=== PATIENT | female | born 1995 | race Asian ===

== ENCOUNTER 2023-05-10 07:14 | Inpatient (IN) | payer OTHER ==
[2023-05-10] MEDS: ELECTROLYTE-148 SOLN 1,000 ML IV SCH (08:30)
[2023-05-10] MEDS: OXYTOCIN 30 UNITS in 0.9% NS 30 UNIT/500 ML INFUS.BAG IVPB SCH (08:40)
[2023-05-10 09:13] VITALS: BMI 44.2
[2023-05-10 09:48] LABS: BASO % 1.4 % (0-2.0); EOS % 1.5 % (0-4.5); HEMATOCRIT 32.8 % (32.4-45.2); HEMOGLOBIN 10.9 GM/dL (10.7-15.3); LYMPH % 18.9 % (8-40); MCH 27.3 pg (25.7-33.7); MCHC 33.2 g/dl (32.0-36.0); MEAN CELL VOLUME 82.3 fl (80-96); MONO % 3.8 % (3.8-10.2); NEUT % 74.4 % (42.8-82.8); PLATELET COUNT 272 10^3/uL (134-434); RBC 3.99 M/mm3 (3.60-5.2); RDW 16.2 % (11.6-15.6); WHITE BLOOD COUNT 9.1 K/mm3 (4.0-10.0)
[2023-05-10 10:17] LABS: POTASSIUM 4.2 mmol/L (3.5-5.1)
[2023-05-10 10:18] LABS: CALCIUM 8.9 mg/dL (8.5-10.1)
[2023-05-10 10:19] LABS: BLOOD UREA NITROGEN 12.4 mg/dL (7-18)
[2023-05-10 10:22] LABS: CREATININE 0.5 mg/dL (0.55-1.3)
[2023-05-10 10:39] LABS: INR 0.95 (0.83-1.09)
[2023-05-10 10:40] LABS: ACTIVATED PTT 31.2 SECONDS (25.2-36.5)
[2023-05-10 12:13] LABS: HIV INTERPRETATION NEGATIVE (NEGATIVE)
[2023-05-10] MEDS ORDERED: FENTANYL CITRATE/PF 50 MCG/ML VIAL ONE (15:22)
[2023-05-10] MEDS ORDERED: FENTANYL/BUPIVACAINE/NS/PF - PCEA - 50 ML DISP.SYRIN EP ONE ×2 (15:47→20:34)
[2023-05-10] MEDS: FENTANYL/BUPIVACAINE/NS/PF - PCEA - 50 ML DISP.SYRIN EP SCH (15:50)
[2023-05-10] MEDS ORDERED: NALOXONE HCL 0.4 MG/ML VIAL IVPUSH PRN (16:09)
[2023-05-11] MEDS ORDERED: FENTANYL/BUPIVACAINE/NS/PF - PCEA - 50 ML DISP.SYRIN EP ONE (00:38)
[2023-05-11] MEDS ORDERED: LIDOCAINE HCL 1% PRESERVATIVE FREE - 30ML VIAL ONE (02:46)
[2023-05-11] MEDS ORDERED: OXYTOCIN 20 UNITS in 0.9% NS 20 UNIT/1,000 ML INFUS.BAG IV ONE (02:46)
[2023-05-11] MEDS: OXYTOCIN 20 UNITS in 0.9% NS 20 UNIT/1,000 ML INFUS.BAG IV SCH (04:05)
[2023-05-11] MEDS ORDERED: BISACODYL 10 MG SUPP.RECT RC PRN (04:20)
[2023-05-11] MEDS ORDERED: ACETAMINOPHEN 325 MG TABLET (FP) PO PRN (04:20)
[2023-05-11] MEDS ORDERED: IBUPROFEN 600 MG TABLET (FP) PO PRN (04:20)
[2023-05-11] MEDS ORDERED: WITCH HAZEL 50% (TUCKS) 40 PAD/JAR PAD TP PRN (04:20)
[2023-05-11] MEDS ORDERED: BENZOCAINE 28 GM HEMORRHOIDAL OINTMENT TP PRN (04:20)
[2023-05-11] MEDS ORDERED: METHYLERGONOVINE MALEATE 0.2 MG/1 ML AMP IM PRN (04:20)
[2023-05-11] MEDS ORDERED: oxyCODONE HCL 5 MG TABLET PO PRN (04:20)
[2023-05-11] MEDS ORDERED: BENZOCAINE 20% 57 GM BOTTLE TP PRN (04:20)
[2023-05-11] MEDS: PRENATAL VITAMINS W/ FOLIC ACID TABLET (FP) PO SCH (09:56)
[2023-05-11] MEDS: FERROUS SO4 325 MG TABLET (FP) PO SCH (09:57)
[2023-05-11] MEDS: diphenhydrAMINE HCL 25 MG CAPSULE (FP) PO PRN (23:11)
[2023-05-12 08:31] VITALS: RESP 16
[2023-05-12 08:34] VITALS: BP 128/83; PULSE 90; TEMP 98.2
[2023-05-12 09:31] LABS: BASO % 0.5 % (0-2.0); EOS % 1.9 % (0-4.5); HEMATOCRIT 35.3 % (32.4-45.2); HEMOGLOBIN 11.7 GM/dL (10.7-15.3); MCH 27.4 pg (25.7-33.7); MCHC 33.1 g/dl (32.0-36.0); MEAN CELL VOLUME 82.8 fl (80-96); MEAN PLT VOLUME 7.7 fl (7.5-11.1); MONO % 3.2 % (3.8-10.2); NEUT % 83.4 % (42.8-82.8); PLATELET COUNT 311 10^3/uL (134-434); RBC 4.26 M/mm3 (3.60-5.2); WHITE BLOOD COUNT 12.6 K/mm3 (4.0-10.0)
[2023-05-12] MEDS: FERROUS SO4 325 MG TABLET (FP) PO SCH (10:08)
[2023-05-12] MEDS ORDERED: SENNOSIDES/DOCUSATE COMBO (SENNA PLUS) TABLET (UD) PO PRN (22:00)
== END 2023-05-12 13:58 | disposition home or self-care (01) | DRG 560 ==
LOC: JLDR 07:14 → J3W 05-11 06:03
PROVIDERS: ADMIT Obstetrics & Gynecology; ATTEND Obstetrics & Gynecology
PROC: 10907ZC Drainage of Amniotic Fluid, Therapeutic from Products of Conception, Via Natural or Artificial Opening (ICD-10-PCS; 2023-05-10)
PROC: 3E0P7VZ Introduction of Hormone into Female Reproductive, Via Natural or Artificial Opening (ICD-10-PCS; 2023-05-10)
PROC: 10E0XZZ Delivery of Products of Conception, External Approach (ICD-10-PCS; principal; 2023-05-11)
PROC: 0HQ9XZZ Repair Perineum Skin, External Approach (ICD-10-PCS; 2023-05-11)
DX: O48.0 Post-term pregnancy (principal); O70.0 First degree perineal laceration during delivery; Z3A.41 41 weeks gestation of pregnancy; Z37.0 Single live birth
CPT/HCPCS: 36415; 80048; 85025; 85610; 85730; 86780; 86850; 86900; 86901; 87389

== ENCOUNTER 2023-06-15 06:05 | Emergency (ER) | payer OTHER ==
[2023-06-15 06:13] VITALS: BMI 40.9
[2023-06-15] MEDS ORDERED: ACETAMINOPHEN INJECTION 100 ML IVPB ONE (07:30)
[2023-06-15] MEDS ORDERED: METOCLOPRAMIDE HCL INJECTION 10 MG/2 ML VIAL ONE (07:30)
[2023-06-15] MEDS: ACETAMINOPHEN 1000 MG/100 ML BAG IVPB ONE (08:07)
[2023-06-15] MEDS: METOCLOPRAMIDE HCL INJECTION 10 MG/2 ML VIAL IVPUSH ONE (08:07)
[2023-06-15] MEDS: METOCLOPRAMIDE HCL INJECTION 10 MG/2 ML VIAL IVPB ONE (08:08)
[2023-06-15 08:18] LABS: BASO % 0.3 % (0-2.0); EOS % 2.6 % (0-4.5); HEMATOCRIT 39.1 % (32.4-45.2); HEMOGLOBIN 12.6 GM/dL (10.7-15.3); LYMPH % 17.1 % (8-40); MCH 26.3 pg (25.7-33.7); MCHC 32.1 g/dl (32.0-36.0); MEAN CELL VOLUME 81.8 fl (80-96); MEAN PLT VOLUME 7.1 fl (7.5-11.1); MONO % 3.6 % (3.8-10.2); NEUT % 76.4 % (42.8-82.8); PLATELET COUNT 454 10^3/uL (134-434); RBC 4.78 M/mm3 (3.60-5.2); RDW 15.5 % (11.6-15.6); WHITE BLOOD COUNT 9.8 K/mm3 (4.0-10.0)
[2023-06-15 08:27] LABS: HCG,QUALITATIVE URINE Negative
[2023-06-15 08:42] LABS: CHLORIDE 105 mmol/L (98-107); POTASSIUM 4.3 mmol/L (3.5-5.1); SODIUM 138 mmol/L (136-145)
[2023-06-15 08:44] LABS: ANION GAP 5 mmol/L (4-13); CALCIUM 9.4 mg/dL (8.5-10.1); CO2 28 mmol/L (21-32); GLUCOSE,RANDOM 99 mg/dL (74-106)
[2023-06-15 08:45] LABS: ALBUMIN 3.9 g/dl (3.4-5.0); MAGNESIUM 2.1 mg/dL (1.8-2.4)
[2023-06-15 08:47] LABS: SGPT/ALT 41 U/L (13-61)
[2023-06-15 08:48] LABS: CREATININE 0.9 mg/dL (0.55-1.3); SGOT/AST 25 U/L (15-37)
[2023-06-15 08:49] LABS: BILIRUBIN,TOTAL 0.7 mg/dL (0.2-1); TOT PROT 7.8 g/dl (6.4-8.2)
[2023-06-15 08:50] LABS: ALK PHOS 165 U/L (45-117)
[2023-06-15 09:11] LABS: PH,URINE 5.5 (5.0-8.0); URINE APPEARANCE Clear; URINE BILIRUBIN Negative (NEGATIVE); URINE GLUCOSE (UA) Negative (NEGATIVE); URINE KETONE Negative (NEGATIVE); URINE LEUK ESTERASE Negative (NEGATIVE); URINE NITRITE Negative (NEGATIVE); URINE PROTEIN Negative (NEGATIVE); URINE UROBILINOGEN 0.2 mg/dL (0.2-1.0)
[2023-06-15 09:17] LABS: URINE COLOR COLORLESS
[2023-06-15 09:29] VITALS: BP 132/92; PULSE 78; RESP 18; TEMP 98.3
[2023-06-15] MEDS: LACTATED RINGERS SOLUTION 1000 ML INFUS.BAG IV ONE (09:42)
[2023-06-15 11:06] LABS: COCAINE, UR NEGATIVE (NEGATIVE); OPIATES, URI NEGATIVE (NEGATIVE)
[2023-06-15 11:07] LABS: PHENCYCLIDINE,URINE NEGATIVE (NEGATIVE); URINE BARBITURATES NEGATIVE (NEGATIVE); URINE BENZODIAZEPINES NEGATIVE (NEGATIVE)
[2023-06-15 11:08] LABS: METHADONE, UR NEGATIVE (NEGATIVE); URINE AMPHETAMINES NEGATIVE (NEGATIVE)
== END 2023-06-15 16:39 | disposition home or self-care (01) ==
LOC: JER 06:05
PROC: 3E033GC Introduction of Other Therapeutic Substance into Peripheral Vein, Percutaneous Approach (ICD-10-PCS; principal; 2023-06-15)
DX: R51.9 Headache, unspecified (principal); F53.0 Postpartum depression; R11.10 Vomiting, unspecified; F30.9 Manic episode, unspecified; H53.8 Other visual disturbances; R07.0 Pain in throat; R09.81 Nasal congestion; Z20.822 Contact with and (suspected) exposure to COVID-19
CPT/HCPCS: 0241U-QW; 36415; 80053; 80307; 81003; 82140; 83690; 83735; 84443; 84703; 85025; 87086; 99284-25

== ENCOUNTER 2024-06-01 07:20 | Inpatient (IN) | payer OTHER ==
[2024-06-01 08:50] VITALS: BMI 45.8
[2024-06-01] MEDS: ELECTROLYTE-148 SOLN 1,000 ML IV SCH (09:00)
[2024-06-01] MEDS ORDERED: OXYTOCIN 30 UNITS in 0.9% NS 30 UNIT/500 ML INFUS.BAG IVPB ONE (09:16)
[2024-06-01 09:27] LABS: BASO % 0.6 % (0-2.0); EOS % 1.6 % (0-4.5); HEMATOCRIT 32.6 % (32.4-45.2); HEMOGLOBIN 10.7 GM/dL (10.7-15.3); LYMPH % 19.8 % (8-40); MCH 25.7 pg (25.7-33.7); MCHC 32.7 g/dl (32.0-36.0); MEAN CELL VOLUME 78.6 fl (80-96); MEAN PLT VOLUME 7.8 fl (7.5-11.1); MONO % 3.4 % (3.8-10.2); NEUT % 74.6 % (42.8-82.8); PLATELET COUNT 291 10^3/uL (134-434); RBC 4.15 M/mm3 (3.60-5.2); RDW 17.6 % (11.6-15.6); WHITE BLOOD COUNT 7.6 K/mm3 (4.0-10.0)
[2024-06-01 09:33] LABS: INR 0.94 (0.83-1.09); PROTHROMBIN TIME (PATIENT) 10.3 SEC (9.7-13.0)
[2024-06-01 09:35] LABS: ACTIVATED PTT 32.1 SECONDS (25.2-36.5)
[2024-06-01] MEDS: OXYTOCIN 30 UNITS in 0.9% NS 30 UNIT/500 ML INFUS.BAG IVPB SCH (10:30)
[2024-06-01 10:36] LABS: ALBUMIN 2.2 g/dl (3.4-5.0); BLOOD UREA NITROGEN 10.1 mg/dL (7-18); CALCIUM 9.2 mg/dL (8.5-10.1); POTASSIUM 4.5 mmol/L (3.5-5.1)
[2024-06-01 10:45] LABS: BILIRUBIN,TOTAL 0.6 mg/dL (0.2-1); CREATININE 0.6 mg/dL (0.55-1.3); TOT PROT 6.6 g/dl (6.4-8.2)
[2024-06-01] MEDS ORDERED: FENTANYL/BUPIVACAINE/NS/PF - PCEA - 50 ML DISP.SYRIN EP ONE (13:42)
[2024-06-01] MEDS: FENTANYL/BUPIVACAINE/NS/PF - PCEA - 50 ML DISP.SYRIN EP SCH (14:15)
[2024-06-01] MEDS ORDERED: NALOXONE HCL 0.4 MG/ML VIAL IVPUSH PRN (15:12)
[2024-06-01] MEDS ORDERED: OXYTOCIN 20 UNITS in 0.9% NS 20 UNIT/1,000 ML INFUS.BAG IV ONE (17:32)
[2024-06-01] MEDS: OXYTOCIN 20 UNITS in 0.9% NS 20 UNIT/1,000 ML INFUS.BAG IV SCH (18:12)
[2024-06-01] MEDS ORDERED: WITCH HAZEL 50% (TUCKS) 40 PAD/JAR PAD TP PRN (18:26)
[2024-06-01] MEDS ORDERED: oxyCODONE HCL 5 MG TABLET PO PRN (18:26)
[2024-06-01] MEDS ORDERED: ACETAMINOPHEN 325 MG TABLET (FP) PO PRN (18:26)
[2024-06-01] MEDS ORDERED: BENZOCAINE 20% 57 GM BOTTLE TP PRN (18:26)
[2024-06-01] MEDS ORDERED: METHYLERGONOVINE MALEATE 0.2 MG/1 ML AMP IM PRN (18:26)
[2024-06-01] MEDS ORDERED: BENZOCAINE 28 GM HEMORRHOIDAL OINTMENT TP PRN (18:26)
[2024-06-01] MEDS ORDERED: BISACODYL 10 MG SUPP.RECT RC PRN (18:26)
[2024-06-01 18:48] LABS: HIV INTERPRETATION NEGATIVE (NEGATIVE)
[2024-06-02] MEDS: IBUPROFEN 600 MG TABLET (FP) PO PRN (05:15)
[2024-06-02 08:18] LABS: BASO % 0.3 % (0-2.0); EOS % 1.4 % (0-4.5); HEMATOCRIT 30.6 % (32.4-45.2); MCH 25.5 pg (25.7-33.7); MCHC 32.5 g/dl (32.0-36.0); MEAN CELL VOLUME 78.6 fl (80-96); MEAN PLT VOLUME 8.2 fl (7.5-11.1); MONO % 3.2 % (3.8-10.2); NEUT % 82.1 % (42.8-82.8); PLATELET COUNT 274 10^3/uL (134-434); RDW 17.5 % (11.6-15.6); WHITE BLOOD COUNT 9.5 K/mm3 (4.0-10.0)
[2024-06-02] MEDS: FERROUS SO4 325 MG TABLET (FP) PO SCH (09:11)
[2024-06-02] MEDS: PROMETHAZINE HCL 25 MG/1 ML VIAL IVPB ONE (09:32)
[2024-06-02] MEDS: BUTORPHANOL TARTRATE 2 MG/ML VIAL IVPB ONE (09:32)
[2024-06-02] MEDS: DIPHTH,PERTUSS(ACELL),TET 0.5 ML DISP.SYRIN IM ONE (10:26)
[2024-06-02] MEDS: PRENATAL VITAMINS W/ FOLIC ACID TABLET (FP) PO SCH (10:27)
[2024-06-02] MEDS ORDERED: SENNOSIDES/DOCUSATE COMBO (SENNA PLUS) TABLET (UD) PO PRN (22:00)
[2024-06-03 08:37] VITALS: BP 130/75; PULSE 75; RESP 17; TEMP 97.3
== END 2024-06-03 12:05 | disposition home or self-care (01) | DRG 807 ==
LOC: JLDR 07:20 → J3W 20:14
PROVIDERS: ADMIT Obstetrics & Gynecology; ATTEND Obstetrics & Gynecology
PROC: 10E0XZZ Delivery of Products of Conception, External Approach (ICD-10-PCS; principal; 2024-06-01)
PROC: 0HQ9XZZ Repair Perineum Skin, External Approach (ICD-10-PCS; 2024-06-01)
DX: O70.0 First degree perineal laceration during delivery (principal); Z37.0 Single live birth; Z3A.39 39 weeks gestation of pregnancy
CPT/HCPCS: 36415; 59409; 80053; 85025; 85610; 85730; 86780; 86850; 86900; 86901; 87389; 90715